=== PATIENT | male | born 1970 | race African-American/Black ===

== ENCOUNTER 2023-01-02 11:47 | Emergency (ER) | payer MEDICAID ==
[~2023-01-02] VITALS: Ht 165.1 cm; Wt 75.0 kg
[~2023-01-02 11:47] MED LIST: LORA5TAB8; PROM25TA13
[2023-01-02 11:59] VITALS: BP 179/115
== END 2023-01-02 16:54 | disposition left against medical advice (07) ==
LOC: ER 11:47
DX: Z53.21 Procedure and treatment not carried out due to patient leaving prior to being seen by health care provider (principal)